=== PATIENT | female | born 1995 | race Caucasian/White ===

== ENCOUNTER 2021-03-25 06:09 | Day surgery (SDC) | payer MEDICAID, SELFPAY ==
[~2021-03-25] VITALS: Ht 154.9 cm; Wt 61.2 kg
[2021-03-25 07:22] LABS: HCG,QUAL RESULT NEGATIVE (NEGATIVE)
[2021-03-25 14:34] VITALS: BP_SYST 111
== END 2021-03-25 09:45 | disposition home or self-care (01) ==
LOC: SDS 06:09 → SMU 06:14 → SDS 09:45
PROVIDERS: ATTEND Internal Medicine Gastroenterology
DX: K63.89 Other specified diseases of intestine (principal); K51.90 Ulcerative colitis, unspecified, without complications
CPT/HCPCS: 45380; 84703; 87045; 87046 ×2; 87177; 88305; 89055; U0003; 87230-TC